=== PATIENT | male | born 1940 | race Native Hawaiian/Other Pacific Islander ===

== ENCOUNTER 2016-08-17 13:12 | Outpatient (CLI) | payer OTHER ==
[2016-08-17 13:24] LABS: PLATELET COUNT 290 K/uL (142-355)
[2016-08-17 14:00] LABS: POTASSIUM 4.7 mmol/L (3.6-5.2); SODIUM 135 mmol/L (136-145)
== END 2016-08-17 19:24 | disposition home or self-care (01) ==
LOC: LAB 13:12
PROVIDERS: Nurse Practitioner Family
DX: I25.10 Atherosclerotic heart disease of native coronary artery without angina pectoris (principal); E78.4 Other hyperlipidemia; I10 Essential (primary) hypertension; Z79.899 Other long term (current) drug therapy; Z51.81 Encounter for therapeutic drug level monitoring
CPT/HCPCS: 80053; 80061; 83036; 84439; 84443; 85027

== ENCOUNTER 2016-11-09 13:04 | Outpatient (CLI) | payer OTHER ==
[2016-11-09 13:22] LABS: PLATELET COUNT 378 K/uL (142-355)
[2016-11-09 15:00] LABS: SODIUM 135 mmol/L (136-145)
== END 2016-11-09 14:04 | disposition home or self-care (01) ==
LOC: LAB 13:04
PROVIDERS: Nurse Practitioner Family
DX: I25.10 Atherosclerotic heart disease of native coronary artery without angina pectoris (principal); I10 Essential (primary) hypertension; E78.4 Other hyperlipidemia; Z79.899 Other long term (current) drug therapy; R39.198 Other difficulties with micturition; Z51.81 Encounter for therapeutic drug level monitoring; Z12.5 Encounter for screening for malignant neoplasm of prostate
CPT/HCPCS: 80053; 80061; 83036; 84154; 84439; 84443; 85027

== ENCOUNTER 2017-02-15 13:51 | Outpatient (CLI) | payer OTHER ==
[2017-02-15 14:39] LABS: PLATELET COUNT 281 K/uL (142-355)
[2017-02-15 15:11] LABS: POTASSIUM 4.1 mmol/L (3.6-5.2); SODIUM 141 mmol/L (136-145)
== END 2017-02-15 14:55 | disposition home or self-care (01) ==
LOC: LAB 13:51
PROVIDERS: Nurse Practitioner Family
DX: Z00.00 Encounter for general adult medical examination without abnormal findings (principal); I10 Essential (primary) hypertension; E78.4 Other hyperlipidemia; I25.10 Atherosclerotic heart disease of native coronary artery without angina pectoris; Z79.899 Other long term (current) drug therapy; Z51.81 Encounter for therapeutic drug level monitoring; E55.9 Vitamin D deficiency, unspecified
CPT/HCPCS: 80053; 80061; 82306; 82607; 83036; 84154; 84436; 84443; 85027

== ENCOUNTER 2017-06-15 13:58 | Outpatient (CLI) | payer OTHER ==
[2017-06-15 14:57] LABS: POTASSIUM 4.2 mmol/L (3.6-5.2); SODIUM 138 mmol/L (136-145)
[2017-06-15 15:15] LABS: PLATELET COUNT 324 K/uL (142-355)
== END 2017-06-15 15:00 | disposition home or self-care (01) ==
LOC: LAB 13:58
PROVIDERS: Nurse Practitioner Family
DX: E78.4 Other hyperlipidemia (principal); I25.10 Atherosclerotic heart disease of native coronary artery without angina pectoris; Z79.899 Other long term (current) drug therapy; R39.198 Other difficulties with micturition; I10 Essential (primary) hypertension; Z51.81 Encounter for therapeutic drug level monitoring; R97.20 Elevated prostate specific antigen [PSA]
CPT/HCPCS: 80053; 80061; 83036; 84153; 84436; 84443; 85027

== ENCOUNTER 2017-11-09 14:34 | Outpatient (CLI) | payer OTHER ==
[2017-11-09 15:13] LABS: PLATELET COUNT 309 K/uL (142-355)
[2017-11-09 15:25] LABS: POTASSIUM 3.8 mmol/L (3.6-5.2)
== END 2017-11-09 22:56 | disposition home or self-care (01) ==
LOC: LAB 14:34
PROVIDERS: Nurse Practitioner Family
DX: E78.4 Other hyperlipidemia (principal); I25.10 Atherosclerotic heart disease of native coronary artery without angina pectoris; Z79.899 Other long term (current) drug therapy; R39.198 Other difficulties with micturition; I10 Essential (primary) hypertension; R97.20 Elevated prostate specific antigen [PSA]; Z51.81 Encounter for therapeutic drug level monitoring
CPT/HCPCS: 80053; 80061; 83036; 84154; 84436; 84443; 85027

== ENCOUNTER 2018-01-24 15:26 | Outpatient (CLI) | payer OTHER | END 2018-01-24 22:46 | disposition home or self-care (01) | LOC: LAB 15:26 | DX: R39.198 Other difficulties with micturition (principal); R97.20 Elevated prostate specific antigen [PSA] | CPT/HCPCS: 84154 ==

== ENCOUNTER 2019-09-01 07:54 | Outpatient (CLI) | payer OTHER | END 2019-09-01 19:22 | disposition home or self-care (01) | LOC: RAD 07:54 | DX: Z01.818 Encounter for other preprocedural examination (principal); I10 Essential (primary) hypertension; E78.49 Other hyperlipidemia; K21.9 Gastro-esophageal reflux disease without esophagitis | CPT/HCPCS: 93005 ==

== ENCOUNTER 2019-09-20 00:29 | Outpatient (CLI) | payer OTHER | END 2019-09-20 00:54 | disposition short-term general hospital (02) | LOC: AMB 00:29 | DX: R06.02 Shortness of breath (principal); R94.31 Abnormal electrocardiogram [ECG] [EKG]; R00.0 Tachycardia, unspecified | CPT/HCPCS: A0425; A0427 ==